=== PATIENT | male | born 1995 | race Caucasian/White ===

== ENCOUNTER 2018-10-26 09:17 | Emergency (ER) | payer OTHER ==
[2018-10-26] MEDS: BACITRACIN 0.5%/ZINC 28.35 GM OINT TOP (10:02)
[2018-10-26] MEDS: IBUPROFEN 800 MG TAB PO (10:02)
== END 2018-10-26 10:48 | disposition home or self-care (01) ==
LOC: FTE 10:48
DX: T23.112A Burn of first degree of left thumb (nail), initial encounter (principal); T23.122A Burn of first degree of single left finger (nail) except thumb, initial encounter; X12.XXXA Contact with other hot fluids, initial encounter; Y92.9 Unspecified place or not applicable
CPT/HCPCS: 16000; 99282-25